=== PATIENT | male | born 1975 | race Hispanic/Latino ===

== ENCOUNTER 2016-08-28 06:42 | Emergency (ER) | payer OTHER ==
[~2016-08-28] VITALS: Ht 177.8 cm; Wt 88.6 kg
[~2016-08-28 06:42] MED LIST: NOMED
[2016-08-28 06:44] VITALS: BP 115/61; PULSE 92; RESP 16; O2SAT 97
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
[2016-08-28] MEDS ORDERED: Dexamethasone 20 mg/2 mL Oral Solution PO ONE (07:40)
[2016-08-28] MEDS ORDERED: Albuterol 2.5 mg/3 mL Inhalation Solution NEB ONE (07:40)
[2016-08-28 07:47] VITALS: BP 120/53; PULSE 92; O2SAT 98
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
[2016-08-28 08:26] VITALS: PULSE 83; RESP 18; O2SAT 94
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
[2016-08-28 12:05] VITALS: BP 125/61; PULSE 73; RESP 16; O2SAT 98
== END 2016-08-28 13:15 | disposition home or self-care (01) ==
LOC: SED 06:42 → EDBD 06:42 → SED 13:15
DX: S00.83XA Contusion of other part of head, initial encounter (principal); S10.93XA Contusion of unspecified part of neck, initial encounter; R07.81 Pleurodynia; M54.6 Pain in thoracic spine; Y04.0XXA Assault by unarmed brawl or fight, initial encounter; Y93.9 Activity, unspecified; Y92.9 Unspecified place or not applicable; Y99.8 Other external cause status; J98.01 Acute bronchospasm; F11.10 Opioid abuse, uncomplicated; F15.20 Other stimulant dependence, uncomplicated; J45.909 Unspecified asthma, uncomplicated
CPT/HCPCS: 70450; 71020; 72100; 72125; 94664; 99284; J7613